=== PATIENT | female | born 1940 | race Caucasian/White ===

== ENCOUNTER 2019-02-14 15:47 | Inpatient (IN) ==
--- NOTE | 2019-02-14 17:36 | Internal Med History&Physical ---
Date of Encounter: 02/14/19 Time of Encounter: 17:30 Internal Medicine - H&P: HPI Chief complaint: SOB Admitted From: Home Plans for Post Hospital Care: Home History of present illness: Ms. Marcos is a 78 year old female who has history of atrial fibrillation status post pacemaker placement, CAD hypertension presented to [place] emergency room for not feeling well ,cough and shortness of breath for 1 week. Patient states that she was about to get a physical therapy a week ago, but she become so weak, now feeling well, very shortness of breath with exertion, she also have a dry cough for weak. She has some chills denies fever no night sweats. She denies chest pain, diarrhea nausea vomiting. She lost appetite has not been drinking and eating over last week, she feels to be dehydrated. In the emergency room she was find a low grade fever 100.9, EKG shows nonspecific ST depression, no ST elevation, V paced rhythm. WBC 10.2 INR 1.9 BNP 150 to UA is negative for infection, sodium 129 chest x-ray shows right upper pneumonia. Troponin was mildly elevated to 0.04. Cardiology was contacted and recommended follow-up troponin, if trop trending up then consult cardiology. Patient is going to be admitted for pneumonia, troponin elevation, dehydration I discussed the CODE STATUS with patient and she said her daughter Lisa is a POA she wants to be DNR CCA. Past Med Surg Social Fam HX - Past Medical History Medical history: atrial fibrillation, cancer, coronary artery disease, hypertension, other Additional medical history: DIVERTICULITIS, CARDIAC DYSRHYTHMIA,BASAL CELL CARCINOMA. ORIF RIGHT CLAVICAL Psychiatric history: no psych history - Past Surgical History Surgical History: cholecystectomy, hysterectomy Additional surgical history: NEGATIVE HEART CATH 2005, PACEMAKER 2007, BASAL CELL CARCINOMA REMOVED 12/2015 - Social History Smoking Status: Never smoker Smokeless Tobacco Status: No Alcohol use: none Drug use: none Internal Medicine - H&P: Meds Apixaban [Eliquis] 5 mg PO BID 02/21/16 [History] Calcium Carbonate [Calcium] 500 mg PO DAILY 02/21/16 [History] Cholecalciferol (D-3) [Vitamin D] 2,000 unit PO DAILY 02/21/16 [History] Diltiazem HCl [Cardizem Cd] 360 mg PO DAILY 02/21/16 [History] Allergy/AdvReac Type Severity Reaction Status Date / Time No Known Allergies Allergy Verified 02/14/19 10:44 All Systems PM: A 10-system review of systems was performed and is negative for pertinent findings except as documented above in the HPI. - Constitutional Vitals: Temp Pulse Resp BP Pulse Ox 98.8 F 72 18 102/68 90 02/14/19 17:13 02/14/19 17:13 02/14/19 17:13 02/14/19 17:13 02/14/19 17:13 General appearance: Present: A&O X 3, pleasant, obese Exam: CONSTITUTIONAL: Patient appears as an age appropriate female well developed, in no acute distress. EYES Clear sclerae, bilateral pupils are equal, reactive to light and accommodation. Extraocular movements are intact RESPIRATORY: No accessory muscle use, right-sided crackles to auscultation, no wheezing, no crackles/rales. CARDIOVASCULAR: Regular heart rate, normal S1 and S2, no murmurs GASTROINTESTINAL: bowel sounds present, soft, no tenderness. No hepatosplenomegaly. No bilateral CVA tenderness MUSCULOSKELETAL: Joints in normal range of motion, no clubbing, no edema, no cyanosis. Bilateral peripheral pulses 2+ LYMPHATIC no lymphadenopathy in neck, groin and axilla bilaterally, no thyromegaly. NEUROLOGIC: CN II to XII are grossly intact, no focal neurological deficit. Deep tendon reflexes 2+ bilaterally. Normal light touch sensation to upper and lower extremity PSYCHIATRIC: Oriented x3, with good insight, mood is euthymic. No hallucinations or delusions. SKIN: Skin warm and dry, no rashes, no open wound. Internal Med - H&P Results - EKG Data Prior EKG available for review: yes Interpretation IM: other - Impressions V-paced - Summary of Assessment and Plan Summary of Assessment and Plan: This is a 78 year 68 female who has history of atrial fibrillation stated post pacemaker placements, hypertension presenting emergency room for not feeling well dry cough, low-grade fever for 1 week. She was find the right upper lobar pneumonia and elevated troponin, hyponatremia #1 possible bacteria pneumonia unable to determine organism, patient denies recent hospitalization will continue ceftriaxone and azithromycin, check urine strep and leginella #2 elevated troponin, will follow-up troponin, if troponin trending up we will consult a oceanic sciences professor start heparin drip #3 hyponatremia, likely from dehydration patient has not been eating and drinking over last week due to illness. We will start gentle IV fluids #4. Chronic atrial fibrillation stated post pacemaker, currently on V paced rhythm continue Eliquis and the diltiazem #5 nausea and elevated LFT, will check RUQ US, zofran prn, add maalox prn #6. oBESITY WITH bmi 32 #7. code [id number] - Time Spent With Patient Total time spent is greater than 50% in coordination of care (as documented) at patient's floor/unit and/or counseling patient: Greater than 35 minutes
[2019-02-14] MEDS ORDERED: Acetaminophen 325 MG TABLET PO PRN (17:43)
[2019-02-14] MEDS ORDERED: Naloxone 0.4 MG/ML INJ IVP PRN (17:43)
[2019-02-14] MEDS ORDERED: Ondansetron 4 MG/2 ML VIAL IVP PRN (17:43)
[2019-02-14] MEDS: Mag Hydrox/Al Hydrox/Simeth 30 ML UDC PO SCH (21:24)
[2019-02-14] MEDS: Apixaban 5 MG TABLET PO SCH (21:24)
[2019-02-14] MEDS: Ringers Solution, Lactated 1,000 ML IVC SCH (21:25)
[2019-02-14] MEDS: Levalbuterol Neb 1.25 MG/3 ML IH SCH (22:50)
[2019-02-15] MEDS: Mag Hydrox/Al Hydrox/Simeth 30 ML UDC PO SCH ×4 (00:02→17:44)
[2019-02-15 01:56] LABS: Hematocrit 36.7 % (35.3-44.9); Hemoglobin 12.1 g/dL (11.5-15.4); Mean Corpuscular Hemoglobin 32.9 pg (28.0-33.3); Mean Corpuscular Volume 99.7 fL (83.0-100.0); Mean Platelet Volume 10.4 fL (9.4-12.4); Platelet Count 228 K/mcL (140-400); Red Blood Count 3.68 M/mcL (3.82-4.97); Red Cell Distribution Width 14.3 % (11.5-14.5); White Blood Count 10.3 K/mcL (4.3-11.1)
[2019-02-15 02:01] LABS: BUN/Creatinine Ratio 23 (6-26); Blood Urea Nitrogen 20 mg/dL (8-23); Calcium 8.1 mg/dL (8.6-10.3); Carbon Dioxide 22 mEq/L (23-29); Chloride 98 mEq/L (98-107); Chol/HDL Ratio 3.4 (0-4.9); Cholesterol 115 mg/dL (< 200); Glucose 110 mg/dL (70-105); HDL Cholesterol 34 mg/dL (40-59); LDL Cholesterol,Calculated 65 mg/dL (0-99); Osmolality,Calculated 273 (280-300); Potassium 3.5 mEq/L (3.5-5.1); Sodium 130 mEq/L (136-145); Triglycerides 79 mg/dL (< 150); eGFR For African Americans > 60 (> 60); eGFR For Non-African Americans > 60 (> 60)
[2019-02-15 02:43] LABS: Large Platelets Present (Not Present); Lymphocytes # 0.5 K/mcL (0.6-4.6); Monocytes # 0.5 K/mcL (0.0-1.3); Neutrophils # 9.3 K/mcL (1.6-8.9); Platelet Estimate Normal (Normal)
[2019-02-15] MEDS: Levalbuterol Neb 1.25 MG/3 ML IH SCH ×2 (03:23→10:56)
[2019-02-15] MEDS ORDERED: Levalbuterol Neb 1.25 MG/3 ML IH ONE (06:50)
--- NOTE | 2019-02-15 07:07 | Event Note ---
Date of Encounter: 02/15/19 Time of Encounter: 06:42 Alerted by patient's nurse SHERI Baltazar that patient had been admitted for pneumonia and is not saturating well. Patient currently on 5 L and only satting 88% on continuous pulse ox. Patient denies history of O2 use at home. Went to see patient immediately who was resting in bed. Patient denies history of CHF or COPD but does have history of A. fib which is currently rate controlled. Stat ABG ordered plus additional Xopenex IH treatment. Respiratory called. Stat respiratory infection panel ordered. Nurse instructed to continue monitoring patient very closely and alert day team of any adverse changes.
[2019-02-15 07:09] LABS: ABG Base Excess -2 mEq/L (-2 to 3); ABG HCO3 22 mEq/L (21-27); ABG Oxygen Saturation 91 % (95-98); ABG PCO2 32 mmHg (35-45); ABG PH 7.44 pH Units (7.32-7.45); ABG PO2 58 mmHg (85-104); ABG TCO2 23 mEq/L (20-26)
[2019-02-15 08:32] LABS: Adenovirus Not Detected (Not Detect); Bordetella Pertussis Not Detected (Not Detect); Chlamydophila pneumoniae Not Detected (Not Detect); Coronavirus 229E Not Detected (Not Detect); Coronavirus HKU1 Not Detected (Not Detect); Coronavirus NL63 Not Detected (Not Detect); Coronavirus OC43 Not Detected (Not Detect); Human Metapneumovirus Not Detected (Not Detect); Human Rhinovirus/Enterovirus Not Detected (Not Detect); Influenza A Subtype 2009 H1 Not Detected (Not Detect); Influenza A Untypeable Not Detected (Not Detect); Influenza B Not Detected (Not Detect); Mycoplasma pneumoniae Not Detected (Not Detect); Parainfluenza Virus 1 Not Detected (Not Detect); Parainfluenza Virus 2 Not Detected (Not Detect); Parainfluenza Virus 3 Not Detected (Not Detect); Parainfluenza Virus 4 Not Detected (Not Detect); Respiratory Syncytial Virus Not Detected (Not Detect)
[2019-02-15] MEDS: cefTRIAXone 1,000 MG in Water for inj. (sterile) 20 ML 10 ML IVP SCH (10:11)
[2019-02-15] MEDS: Diltiazem CD (24hr) 180 MG CAPSULE PO SCH (10:12)
[2019-02-15] MEDS: Azithromycin 500 MG in D5% in Water 250 ML IVPB SCH (10:12)
[2019-02-15] MEDS: Apixaban 5 MG TABLET PO SCH ×2 (10:12→19:43)
[2019-02-15] MEDS: Cholecalciferol (D-3) 1,000 UNIT TABLET PO SCH (10:12)
[2019-02-15] MEDS: Ringers Solution, Lactated 1,000 ML IVC SCH (10:25)
--- NOTE | 2019-02-15 14:58 | Internal Med Progress Note ---
Hospitalist Progress Note - Encounter Date of Encounter: 02/15/19 Time of Encounter: 14:49 - Subjective Interval History: Ms. Marcos is a 78 year old female who has history of atrial fibrillation status post pacemaker placement, CAD hypertension presented to [place] emergency room for not feeling well ,cough and shortness of breath for 1 week. Patient states that she was about to get a physical therapy a week ago, but she become so weak, now feeling well, very shortness of breath with exertion, she also have a dry cough for weak. She has some chills denies fever no night sweats. In the emergency room she was find a low grade fever 100.9, EKG shows nonspecific ST depression, no ST elevation, V paced rhythm. Her chest x-ray showed right upper pneumonia. Troponin was mildly elevated to 0.04. She was in the hospital and placed on conveyor monitor. She was started on empirical antibiotic IV Rocephin and azithromycin. Patient still hypoxic and requiring 4 lit oxygen. Patient stated she is feeling better today however still having shortness of breath and dyspnea on exertion. She denied any chest pain. She still have cough with expectoration - Exam Vitals: Temp Pulse Resp BP Pulse Ox 98.1 F 64 18 95/57 91 02/15/19 12:21 02/15/19 12:21 02/15/19 12:21 02/15/19 12:21 02/15/19 12:21 Exam: Gen: Alert, awake, Oriented to time,place and person Chest: Diminished breath sounds B/L, Moderate wheezing, No crackles, No rales Heart: S1S2+ RRR No murmurs Abd: Soft, NT, BS +, No organomegaly Ext: No edema, pulses are palpable, No calf tenderness Neuro : No acute focal neuro deficits noticed Skin: No rash. - Assessment and Plan (1) Acute respiratory failure with hypoxia Current Visit: Yes Status: Acute Assessment and Plan: Due to PNA Currently on 4 lit O2 She does not use O2 started on schedule frequent bronchodilator therapy also started her on low-dose steroids Patient does need to stay in the hospital more than 2 midnights due to her complex medical problems. So we will change her to full admission today. I did review my colleague Dr. Mcnulty's H & P including HPI, PMH, PSH, FH, SH, and ROS no changes noticed (2) Community acquired pneumonia Current Visit: No Status: Acute Assessment and Plan: Mostly bacterial pneumonia respiratory viral panel came back is negative strep pneumonia and Legionella negative continue empirical antibiotic IV Rocephin and azithromycin (3) Reactive airway disease with acute exacerbation Current Visit: Yes Status: Acute Assessment and Plan: started on low dose steroids cont frequent bronchodilator therapy (4) HTN (hypertension) Current Visit: Yes Status: Acute Assessment and Plan: Well controlled with the current home medications (5) Hyponatremia Current Visit: Yes Status: Acute Assessment and Plan: Mostly due to dehydration improving (6) Paroxysmal A-fib Current Visit: Yes Status: Acute Assessment and Plan: Rate controlled with Cardizem on eliquis for anticoagulation (7) Elevated troponin Current Visit: No Status: Acute - Time Spent with Patient Total time spent is greater than 50% in coordination of care (as documented) at patient's floor/unit and/or counseling patient: Internal Medicine: Result - Labs CBC & Chem 7: 02/15/19 00:09 02/15/19 00:09 Labs: Short CBC 02/15/19 Range/Units 00:09 WBC 10.3 (4.3-11.1) K/mcL Hgb 12.1 (11.5-15.4) g/dL Hct 36.7 (35.3-44.9) % Plt Count 228 (140-400) K/mcL Neutrophils # 9.3 H (1.6-8.9) K/mcL BMP 02/15/19 00:09 Sodium 130 L Potassium 3.5 Chloride 98 Carbon Dioxide 22 L BUN 20 Creatinine 0.86 Glucose 110 H Calcium 8.1 L Cardiac Enzymes 02/14/19 02/15/19 02/15/19 Range/Units 18:01 00:09 05:41 Troponin I 0.04 H* 0.04 H* 0.04 H* (< 0.04) ng/mL - ABG Interpretation ABG results: ABG ABG pH 7.44 pH Units (7.32-7.45) 02/15/19 07:04 ABG pCO2 32 mmHg (35-45) L 02/15/19 07:04 ABG pO2 58 mmHg (85-104) L 02/15/19 07:04 ABG O2 Saturation 91 % (95-98) L 02/15/19 07:04 - Impressions Impressions Abdomen Ultrasound 02/15/19 09:00 IMPRESSION: Cholecystectomy has been performed. There is suggestion of bile duct dilation above what would be expected for the patient's cholecystectomy state. However this is not well evaluated by ultrasound and recommend further evaluation with MRCP. If MRI cannot be performed then a CT of the abdomen preferably with IV contrast would be recommended. There is a flattened cystic structure in the region of the gallbladder fossa suspected to be fluid-filled duodenum although a fluid collection could have this appearance. This could be further assessed with MRCP or CT. Mild hepatic steatosis. D/ / Elbert Figueroa MD / Elbert Figueroa MD Interpreting Provider: Elbert Figueroa MD Consult Discharge Plan - Plan Referrals: Devonte Espana, DO [Primary Care Provider] - (2) Community acquired pneumonia Qualifiers: Laterality: right Lung location: upper lobe of lung Qualified Code(s): J18.1 - Lobar pneumonia, unspecified organism (4) HTN (hypertension) Qualifiers: Hypertension type: essential hypertension Qualified Code(s): I10 - Essential (primary) hypertension
[2019-02-15] MEDS: Ipratropium/Albuterol Neb 3 ML IH SCH ×2 (15:43→20:56)
[2019-02-15] MEDS: MethylPREDNISolone 40 MG/ML VIAL IVP SCH (17:44)
[2019-02-16] MEDS: Mag Hydrox/Al Hydrox/Simeth 30 ML UDC PO SCH ×4 (00:03→17:32)
[2019-02-16] MEDS: Ipratropium/Albuterol Neb 3 ML IH SCH ×7 (00:31→23:17)
[2019-02-16] MEDS: MethylPREDNISolone 40 MG/ML VIAL IVP SCH ×2 (05:39→17:32)
[2019-02-16 06:54] LABS: Basophils % 0.2 %; Hematocrit 37.7 % (35.3-44.9); Hemoglobin 12.4 g/dL (11.5-15.4); Immature Granulocytes % 2.9 % (0-4); Lymphocytes # 0.3 K/mcL (0.6-4.6); Lymphocytes % 4.9 %; Mean Corpuscular HGB Conc 32.9 g/dL (31.6-35.5); Mean Corpuscular Hemoglobin 32.6 pg (28.0-33.3); Mean Corpuscular Volume 99.2 fL (83.0-100.0); Mean Platelet Volume 9.9 fL (9.4-12.4); Monocytes # 0.1 K/mcL (0.0-1.3); Monocytes % 1.7 %; Neutrophils # 5.9 K/mcL (1.6-8.9); Platelet Count 279 K/mcL (140-400); Segmented Neutrophils % 90.3 %; White Blood Count 6.5 K/mcL (4.3-11.1)
[2019-02-16 07:17] LABS: BUN/Creatinine Ratio 29 (6-26); Blood Urea Nitrogen 19 mg/dL (8-23); Calcium 8.8 mg/dL (8.6-10.3); Carbon Dioxide 23 mEq/L (23-29); Chloride 100 mEq/L (98-107); Glucose 216 mg/dL (70-105); Osmolality,Calculated 289 (280-300); Potassium 3.2 mEq/L (3.5-5.1); Sodium 135 mEq/L (136-145); eGFR For African Americans > 60 (> 60); eGFR For Non-African Americans > 60 (> 60)
[2019-02-16] MEDS ORDERED: Isovue-370 500 ML BOTTLE IVP ONE (09:36)
[2019-02-16] MEDS: Apixaban 5 MG TABLET PO SCH ×2 (10:12→22:08)
[2019-02-16] MEDS: cefTRIAXone 1,000 MG in Water for inj. (sterile) 20 ML 10 ML IVP SCH (10:12)
[2019-02-16] MEDS: Diltiazem CD (24hr) 180 MG CAPSULE PO SCH (10:12)
[2019-02-16] MEDS: Cholecalciferol (D-3) 1,000 UNIT TABLET PO SCH (10:12)
[2019-02-16] MEDS: Azithromycin 500 MG in D5% in Water 250 ML IVPB SCH (10:13)
--- NOTE | 2019-02-16 13:07 | Internal Med Progress Note ---
Hospitalist Progress Note - Encounter Date of Encounter: 02/16/19 Time of Encounter: 09:30 - Subjective Interval History: Ms. Marcos is a 78 year old female who has history of atrial fibrillation status post pacemaker placement, CAD hypertension presented to [place] emergency room for not feeling well ,cough and shortness of breath for 1 week. Patient states that she was about to get a physical therapy a week ago, but she become so weak, now feeling well, very shortness of breath with exertion, she also have a dry cough for weak. She has some chills denies fever no night sweats. In the emergency room she was find a low grade fever 100.9, EKG shows nonspecific ST depression, no ST elevation, V paced rhythm. Her chest x-ray showed right upper pneumonia. Troponin was mildly elevated to 0.04. She was admitted in the hospital and placed her on cardiac tech. She was started on empirical antibiotic IV Rocephin and azithromycin. Patient still hypoxic and requiring 5 lit oxygen today. However patient stated she is feeling better today. She still has moderate shortness of breath and dyspnea on exertion. She denied any chest pain. She still have cough with expectoration - Exam Vitals: Temp Pulse Resp BP Pulse Ox 97.7 F 61 16 140/71 93 02/16/19 12:31 02/16/19 12:31 02/16/19 12:31 02/16/19 12:31 02/16/19 12:31 Exam: Gen: Alert, awake, Oriented to time,place and person Chest: Diminished breath sounds B/L, Moderate wheezing, No crackles, No rales Heart: S1S2+ RRR No murmurs Abd: Soft, NT, BS +, No organomegaly Ext: No edema, pulses are palpable, No calf tenderness Neuro : No acute focal neuro deficits noticed Skin: No rash. - Assessment and Plan (1) Acute respiratory failure with hypoxia Current Visit: Yes Status: Acute Assessment and Plan: Due to PNA Currently on 5 lit O2 She does not use O2 Cont schedule frequent bronchodilator therapy Cont low-dose steroids will try to wean her off the oxygen as she tolerates Since pt still severe hypoxic, will get CT of Chest for better eval. (2) Community acquired pneumonia Current Visit: No Status: Acute Assessment and Plan: Mostly bacterial pneumonia respiratory viral panel came back is negative strep pneumonia and Legionella negative continue empirical antibiotic IV Rocephin and azithromycin (3) Elevated troponin Current Visit: No Status: Acute Assessment and Plan: Stable, flat and adynamic troponin Mostly due to demand ischemia with Hypoxic resp failure (4) Reactive airway disease with acute exacerbation Current Visit: Yes Status: Acute Assessment and Plan: cont low dose steroids Solumedrol 40 mg BID cont frequent bronchodilator therapy (5) HTN (hypertension) Current Visit: Yes Status: Acute Assessment and Plan: Well controlled with the current home medications (6) Hyponatremia Current Visit: Yes Status: Acute Assessment and Plan: Mostly due to dehydration improved.. Today @ 135 (7) Paroxysmal A-fib Current Visit: Yes Status: Acute Assessment and Plan: Rate controlled with Cardizem on eliquis for anticoagulation - Time Spent with Patient Total time spent is greater than 50% in coordination of care (as documented) at patient's floor/unit and/or counseling patient: Internal Medicine: Result - Labs CBC & Chem 7: 02/16/19 06:23 02/16/19 06:23 Labs: Short CBC 02/16/19 Range/Units 06:23 WBC 6.5 (4.3-11.1) K/mcL Hgb 12.4 (11.5-15.4) g/dL Hct 37.7 (35.3-44.9) % Plt Count 279 (140-400) K/mcL Neutrophils # 5.9 (1.6-8.9) K/mcL BMP 02/16/19 06:23 Sodium 135 L Potassium 3.2 L Chloride 100 Carbon Dioxide 23 BUN 19 Creatinine 0.66 Glucose 216 H Calcium 8.8 - ABG Interpretation ABG results: ABG ABG pH 7.44 pH Units (7.32-7.45) 02/15/19 07:04 ABG pCO2 32 mmHg (35-45) L 02/15/19 07:04 ABG pO2 58 mmHg (85-104) L 02/15/19 07:04 ABG O2 Saturation 91 % (95-98) L 02/15/19 07:04 Consult Discharge Plan - Plan Referrals: Devonte Espana, DO [Primary Care Provider] - (2) Community acquired pneumonia Qualifiers: Laterality: right Lung location: upper lobe of lung Qualified Code(s): J18.1 - Lobar pneumonia, unspecified organism (5) HTN (hypertension) Qualifiers: Hypertension type: essential hypertension Qualified Code(s): I10 - Essential (primary) hypertension
[2019-02-17] MEDS: Ipratropium/Albuterol Neb 3 ML IH SCH ×5 (03:45→19:50)
[2019-02-17] MEDS: Mag Hydrox/Al Hydrox/Simeth 30 ML UDC PO SCH ×4 (05:22→16:24)
[2019-02-17] MEDS: MethylPREDNISolone 40 MG/ML VIAL IVP SCH ×2 (05:22→16:24)
[2019-02-17] MEDS: Cholecalciferol (D-3) 1,000 UNIT TABLET PO SCH (08:13)
[2019-02-17] MEDS: Apixaban 5 MG TABLET PO SCH ×2 (08:13→21:27)
[2019-02-17] MEDS: Diltiazem CD (24hr) 180 MG CAPSULE PO SCH (08:15)
[2019-02-17] MEDS: Azithromycin 500 MG in D5% in Water 250 ML IVPB SCH (08:15)
[2019-02-17] MEDS: cefTRIAXone 1,000 MG in Water for inj. (sterile) 20 ML 10 ML IVP SCH (08:16)
--- NOTE | 2019-02-17 13:00 | Internal Med Progress Note ---
Hospitalist Progress Note - Encounter Date of Encounter: 02/17/19 Time of Encounter: 10:30 - Subjective Interval History: Ms. Marcos is a 78 year old female who has history of atrial fibrillation status post pacemaker placement, CAD hypertension presented to [place] emergency room for not feeling well ,cough and shortness of breath for 1 week. Patient states that she was about to get a physical therapy a week ago, but she become so weak, now feeling well, very shortness of breath with exertion, she also have a dry cough for weak. She has some chills denies fever no night sweats. In the emergency room she was find a low grade fever 100.9, EKG shows nonspecific ST depression, no ST elevation, V paced rhythm. Her chest x-ray showed right upper pneumonia. Troponin was mildly elevated to 0.04. She was admitted in the hospital and placed her on livestock farmers. She was started on empirical antibiotic IV Rocephin and azithromycin. Patient still hypoxic and requiring 4 lit oxygen today. However patient stated she is feeling better today. She still has moderate shortness of breath and dyspnea on exertion. No events over night. - Exam Vitals: Temp Pulse Resp BP Pulse Ox 97.6 F 67 18 137/71 89 02/17/19 11:10 02/17/19 11:10 02/17/19 11:19 02/17/19 11:10 02/17/19 11:19 Exam: Gen: Alert, awake, Oriented to time,place and person Chest: Diminished breath sounds B/L, Moderate wheezing, No crackles, No rales Heart: S1S2+ RRR No murmurs Abd: Soft, NT, BS +, No organomegaly Ext: No edema, pulses are palpable, No calf tenderness Neuro : No acute focal neuro deficits noticed Skin: No rash. - Assessment and Plan (1) Acute respiratory failure with hypoxia Current Visit: Yes Status: Acute Assessment and Plan: Due to PNA Currently on 4 lit O2 She does not use O2 Cont schedule frequent bronchodilator therapy Cont low-dose steroids will try to wean her off the oxygen as she tolerates Reviewed CT of Chest showed Extensive Rt UL PNA (2) Community acquired pneumonia Current Visit: No Status: Acute Assessment and Plan: Mostly bacterial pneumonia respiratory viral panel came back is negative strep pneumonia and Legionella negative Reviewed CT of Chest showed Extensive Rt UL PNA So concerning for Aspiration PNA Pt is still very hypoxic, so will switch her abx Rocephin to Unasyn continue azithromycin for atypical coverage (3) Elevated troponin Current Visit: No Status: Acute Assessment and Plan: Stable, flat and adynamic troponin Mostly due to demand ischemia with Hypoxic resp failure (4) Reactive airway disease with acute exacerbation Current Visit: Yes Status: Acute Assessment and Plan: cont low dose steroids Solumedrol 40 mg BID cont frequent bronchodilator therapy (5) HTN (hypertension) Current Visit: Yes Status: Acute Assessment and Plan: Well controlled with the current home medications (6) Hyponatremia Current Visit: Yes Status: Acute Assessment and Plan: Mostly due to dehydration improved.. Today @ 135 (7) Paroxysmal A-fib Current Visit: Yes Status: Acute Assessment and Plan: Rate controlled with Cardizem on eliquis for anticoagulation - Time Spent with Patient Total time spent is greater than 50% in coordination of care (as documented) at patient's floor/unit and/or counseling patient: Internal Medicine: Result - Labs CBC & Chem 7: 02/16/19 06:23 02/16/19 06:23 - ABG Interpretation ABG results: ABG ABG pH 7.44 pH Units (7.32-7.45) 02/15/19 07:04 ABG pCO2 32 mmHg (35-45) L 02/15/19 07:04 ABG pO2 58 mmHg (85-104) L 02/15/19 07:04 ABG O2 Saturation 91 % (95-98) L 02/15/19 07:04 - Impressions Impressions Chest CT 02/16/19 09:36 IMPRESSION: Extensive right upper lobe pneumonia with accompanying small right pleural effusion. Follow-up after therapy to confirm resolution recommended. D/ / Brenton Maier MD / Brenton Maier MD Interpreting Provider: Brenton Maier MD Consult Discharge Plan - Plan Referrals: Devonte Espana, DO [Primary Care Provider] - (2) Community acquired pneumonia Qualifiers: Laterality: right Lung location: upper lobe of lung Qualified Code(s): J18.1 - Lobar pneumonia, unspecified organism (5) HTN (hypertension) Qualifiers: Hypertension type: essential hypertension Qualified Code(s): I10 - Essential (primary) hypertension
[2019-02-17] MEDS: Ampicillin/Sulbactam 1,500 MG in 0.9 % Sodium Chloride Mini Bag 100 ML IVPB SCH ×2 (16:23→16:35)
[2019-02-18] MEDS: Ampicillin/Sulbactam 1,500 MG in 0.9 % Sodium Chloride Mini Bag 100 ML IVPB SCH ×5 (00:10→22:39)
[2019-02-18] MEDS: Mag Hydrox/Al Hydrox/Simeth 30 ML UDC PO SCH ×5 (00:11→22:57)
[2019-02-18] MEDS: Ipratropium/Albuterol Neb 3 ML IH SCH ×7 (00:42→23:29)
[2019-02-18] MEDS: MethylPREDNISolone 40 MG/ML VIAL IVP SCH (06:05)
[2019-02-18 06:09] LABS: BUN/Creatinine Ratio 32 (6-26); Blood Urea Nitrogen 33 mg/dL (8-23); Calcium 9.7 mg/dL (8.6-10.3); Carbon Dioxide 23 mEq/L (23-29); Chloride 101 mEq/L (98-107); Glucose 200 mg/dL (70-105); Osmolality,Calculated 297 (280-300); Potassium 4.4 mEq/L (3.5-5.1); Sodium 137 mEq/L (136-145); eGFR For African Americans > 60 (> 60); eGFR For Non-African Americans 52 (> 60)
[2019-02-18] MEDS: Apixaban 5 MG TABLET PO SCH ×2 (10:41→21:10)
[2019-02-18] MEDS: Cholecalciferol (D-3) 1,000 UNIT TABLET PO SCH (10:41)
[2019-02-18] MEDS: Diltiazem CD (24hr) 180 MG CAPSULE PO SCH (10:41)
[2019-02-18] MEDS: Azithromycin 500 MG in D5% in Water 250 ML IVPB SCH (10:42)
--- NOTE | 2019-02-18 14:44 | Internal Med Progress Note ---
Hospitalist Progress Note - Encounter Date of Encounter: 02/18/19 Time of Encounter: 14:41 - Subjective Interval History: Ms. Marcos is a 78 year old female who has history of atrial fibrillation status post pacemaker placement, CAD hypertension presented to [place] emergency room for not feeling well ,cough and shortness of breath for 1 week. Patient states that she was about to get a physical therapy a week ago, but she become so weak, now feeling well, very shortness of breath with exertion, she also have a dry cough for weak. She has some chills denies fever no night sweats. In the emergency room she was find a low grade fever 100.9, EKG shows nonspecific ST depression, no ST elevation, V paced rhythm. Her chest x-ray showed right upper pneumonia. Troponin was mildly elevated to 0.04. She was admitted in the hospital and placed her on shipsmith. She was started on empirical antibiotic IV Rocephin and azithromycin. later switched to Unasyn and Azithromycin. Initially she did require 5 lit O2, now she is down to 2 lit O2. Patient stated she is feeling better today. However patient looks little confused. Patient had an episode of severe agitation last night. - Exam Vitals: Temp Pulse Resp BP Pulse Ox 97.7 F 61 18 162/78 94 02/18/19 10:35 02/18/19 10:35 02/18/19 11:35 02/18/19 10:35 02/18/19 11:35 Exam: Gen: Alert, awake, Oriented to time,place and person.. Looks confused / altered Chest: Diminished breath sounds B/L, Moderate wheezing, No crackles, No rales Heart: S1S2+ RRR No murmurs Abd: Soft, NT, BS +, No organomegaly Ext: No edema, pulses are palpable, No calf tenderness Neuro : No acute focal neuro deficits noticed Skin: No rash. - Assessment and Plan (1) Acute delirium Current Visit: Yes Status: Acute Assessment and Plan: Mostly due to toxic encephalopathy due to PNA and some down syndrome due to dementia Started on Seroquel 25mg on Haldol PRN Avoid Benzo's (2) Acute respiratory failure with hypoxia Current Visit: Yes Status: Acute Assessment and Plan: Due to PNA Currently on 2 lit O2 She does not use O2 Cont schedule frequent bronchodilator therapy Switched to PO steroids will try to wean her off the oxygen as she tolerates Reviewed CT of Chest showed Extensive Rt UL PNA (3) Community acquired pneumonia Current Visit: No Status: Acute Assessment and Plan: Mostly bacterial pneumonia respiratory viral panel came back is negative strep pneumonia and Legionella negative Reviewed CT of Chest showed Extensive Rt UL PNA So concerning for Aspiration PNA Pt is still very hypoxic, so will switch her abx Rocephin to Unasyn Finished her azithromycin course for atypical coverage (4) Elevated troponin Current Visit: No Status: Acute Assessment and Plan: Stable, flat and adynamic troponin Mostly due to demand ischemia with Hypoxic resp failure (5) Dementia Current Visit: Yes Status: Acute (6) Reactive airway disease with acute exacerbation Current Visit: Yes Status: Acute Assessment and Plan: Improving switched to PO steroids cont frequent bronchodilator therapy (7) HTN (hypertension) Current Visit: Yes Status: Acute Assessment and Plan: Well controlled with the current home medications (8) Hyponatremia Current Visit: Yes Status: Acute Assessment and Plan: Mostly due to dehydration improved.. Today @ 135 (9) Paroxysmal A-fib Current Visit: Yes Status: Acute Assessment and Plan: Rate controlled with Cardizem on eliquis for anticoagulation - Time Spent with Patient Total time spent is greater than 50% in coordination of care (as documented) at patient's floor/unit and/or counseling patient: Internal Medicine: Result - Labs CBC & Chem 7: 02/16/19 06:23 02/18/19 04:42 Labs: BMP 02/18/19 04:42 Sodium 137 Potassium 4.4 Chloride 101 Carbon Dioxide 23 BUN 33 H Creatinine 1.02 Glucose 200 H Calcium 9.7 - ABG Interpretation ABG results: ABG ABG pH 7.44 pH Units (7.32-7.45) 02/15/19 07:04 ABG pCO2 32 mmHg (35-45) L 02/15/19 07:04 ABG pO2 58 mmHg (85-104) L 02/15/19 07:04 ABG O2 Saturation 91 % (95-98) L 02/15/19 07:04 Consult Discharge Plan - Plan Referrals: Devonte Espana DO [Primary Care Provider] - 02/25/19 3:00 pm (3) Community acquired pneumonia Qualifiers: Laterality: right Lung location: upper lobe of lung Qualified Code(s): J18.1 - Lobar pneumonia, unspecified organism (7) HTN (hypertension) Qualifiers: Hypertension type: essential hypertension Qualified Code(s): I10 - Essential (primary) hypertension
[2019-02-18 22:42] VITALS: BP 161/74
[2019-02-19] MEDS: Ipratropium/Albuterol Neb 3 ML IH SCH ×4 (04:38→15:54)
[2019-02-19] MEDS: Ampicillin/Sulbactam 1,500 MG in 0.9 % Sodium Chloride Mini Bag 100 ML IVPB SCH (06:29)
[2019-02-19] MEDS: Mag Hydrox/Al Hydrox/Simeth 30 ML UDC PO SCH ×2 (06:34→12:34)
[2019-02-19] MEDS: predniSONE 20 MG TABLET PO SCH ×2 (08:02→10:24)
[2019-02-19] MEDS: Apixaban 5 MG TABLET PO SCH (08:02)
[2019-02-19] MEDS: Cholecalciferol (D-3) 1,000 UNIT TABLET PO SCH (08:07)
[2019-02-19] MEDS: Diltiazem CD (24hr) 180 MG CAPSULE PO SCH (10:24)
--- NOTE | 2019-02-19 14:56 | Discharge Summary ---
- NOTES TO OUTPATIENT PROVIDER Notes to Outpatient Provider: Patient admitted for management of pneumonia with hypoxic respiratory failure. Her resp failure has improved at rest and Pneumonia is being treated. She developed delirium in-patient and per family, this usually resolves on discharge home. She lived in an independent living situation but will be going to [facility] at the [facility] where she will be transitioned to assisted living. She is discharged home on oral antibiotics. Follow up with PCP Orders not resulted at time of discharge: Pending orders 02/19/19 04:00 Basic Metabolic Panel AM 0400 Complete Blood Count w/o Diff [HEME] AM 0400 Magnesium AM 0400 Date of Encounter: 02/19/19 Time of Encounter: 14:53 - Discharge Diagnosis (1) Community acquired pneumonia Priority: Primary Status: Acute Qualifiers: Laterality: right Lung location: upper lobe of lung Qualified Code(s): J18.1 - Lobar pneumonia, unspecified organism (2) Elevated troponin Priority: Primary Status: Resolved (3) HTN (hypertension) Priority: Secondary Status: Chronic Qualifiers: Hypertension type: essential hypertension Qualified Code(s): I10 - Essential (primary) hypertension (4) Hyponatremia Priority: Secondary Status: Chronic (5) Paroxysmal A-fib Priority: Secondary Status: Chronic (6) Acute respiratory failure with hypoxia Priority: Primary Status: Resolved (7) Reactive airway disease with acute exacerbation Priority: Secondary Status: Chronic Qualifiers: Asthma severity: mild Asthma persistence: intermittent Qualified Code(s): J45.21 - Mild intermittent asthma with (acute) exacerbation (8) Acute delirium Priority: Primary Status: Acute (9) Dementia Priority: Secondary Status: Chronic Qualifiers: Dementia type: unspecified type Dementia behavioral disturbance: without behavioral disturbance Qualified Code(s): F03.90 - Unspecified dementia without behavioral disturbance Hospital course: Ms. Marcos is a 78 year old female with PMH of dementia, Atrial fibrillation, Reactive airway disease, admitted for management of acute hypoxic respiratory failure secondary to pneumonia Hospital course complicated by delirium Patient has been on Ceftriaxone, switched to Unasyn and she has been on O2 supplementation by nasal cannula She was also on breathing treatment and steroids for her reactive airway disease and is no longer wheezing She was seen and examined at the bedside with family Her daughter and TAJ report she alwys gets delirium while inpatient They are reassured she will be going to fast track where she will be transitioned to assisted living. They are aware she is unable to stay alone Her physical exam is unremarkable except for disorientation to time I have discontinued steroids as this may be contributing to her mental status especially since she has improved resp saha Discharged home with oral antibiotics, continue home meds, as other chronic medical conditions are stable Discharge discussed with: patient, family, nurse - Time Spent with Patient Total time spent providing and/or coordinating discharge services: Time spent: Less than 30 minutes - Discharge Medications Prescriptions: New Diltiazem CD (24hr) [Cardizem CD] 360 mg PO DAILY cap.er.24h predniSONE [PredniSONE] 40 mg PO DAILY tablet Continued Cholecalciferol (D-3) [Vitamin D] 1,000 unit PO DAILY Apixaban [Eliquis] 5 mg PO BID Calcium Carbonate [Calcium] 500 mg PO DAILY Fluticasone Propionate Nasal [Flonase] 1 spray NS DAILY Acetaminophen with Codeine [Acetaminophen-Cod #3 Tablet] 1 tab PO Q6H PRN PRN Reason: Pain Discontinued dilTIAZem HCl [Diltiazem HCl] 120 mg PO TID Home Medications: Apixaban [Eliquis] 5 mg PO BID 02/21/16 [History] Calcium Carbonate [Calcium] 500 mg PO DAILY 02/21/16 [History] Cholecalciferol (D-3) [Vitamin D] 1,000 unit PO DAILY 02/21/16 [History] Acetaminophen with Codeine [Acetaminophen-Cod #3 Tablet] 1 tab PO Q6H PRN 02/15/19 [History] Fluticasone Propionate Nasal [Flonase] 1 spray NS DAILY 02/15/19 [History] Amoxicillin/Clavulanate [Augmentin] 875 mg PO BIDWM 4 Days #8 tablet 02/19/19 [Rx] Diltiazem CD (24hr) [Cardizem CD] 360 mg PO DAILY cap.er.24h 02/19/19 [Rx] Allergies/Adverse Reactions: Allergy/AdvReac Type Severity Reaction Status Date / Time No Known Allergies Allergy Verified 02/14/19 10:44 Date of admission: 02/15/19 10:05 Primary care physician: Devonte Espana DO Consults: 02/14/19 17:44 Consult to Occupational Therapy [CONS] Routine Comment: Evaluate, develop and implement POC Reason for Consult: discharge Does patient have active BEDREST order?: No Is patient medically & hemodynamically stable?: Yes Patient assessed for mobility or mobilized this visit?: Yes Consult to Physical Therapy [CONS] Routine Comment: Evaluate, develop and implement POC Reason for Consult: discharge Does patient have active BEDREST order?: No Is patient medically & hemodynamically stable?: Yes Patient assessed for mobility or mobilized this visit?: Yes 02/15/19 09:26 Consult to Nurse Navigator [CONS] Routine Comment: PNEUMONIA 02/16/19 09:10 Consult to Toy Mechanic [CONS] Routine Reason for SW Consult: PT/OT RECOMMEND SNF. REFERRAL MADE TO [facility] Discharging clinician: Maximilian Covarrubias Anticipated date of discharge: 02/19/19 - Constitutional Vitals: Temp Pulse Resp BP Pulse Ox 97.5 F L 67 16 161/74 93 02/18/19 22:41 02/18/19 22:41 02/19/19 11:50 02/18/19 22:41 02/19/19 11:50 General appearance: Present: A&O X 2, pleasant, obese Exam: see below - Head Head exam: Present: atraumatic, normocephalic - Eye Eye exam: Present: PERRL, conjuntiva pink, sclera anicteric Pupils: Present: PERRL - Neck Neck exam general surgery: Present: supple, trachea midline. Absent: lymphadenopathy - Respiratory Respiratory exam: Present: CTAB. Absent: accessory muscle use, rales, rhonchi, wheezes - Cardiovascular Cardiovascular exam: Present: RRR, +S1, +S2. Absent: diastolic murmur, gallop, rubs, systolic murmur - GI/Abdominal GI/Abdominal exam: Present: normal bowel sounds, soft, no peritoneal signs. Absent: distended, tenderness - Extremities Exam Extremities exam: Present: warm, radial pulses palpable and symmetrical. Absent: calf tenderness, cyanotic, pedal edema - Neurological Exam Neurological exam: Present: CN II-XII intact, no focal deficits. Absent: oriented X3, pronater drift, facial droop, speech deficit - Skin Skin exam: Present: dry, intact - Patient Status Disposition: Transfer SNF Condition: Fair Functional capacity at discharge: independent ambulation Overall status at discharge: patient is progressing back to baseline - Discharge Instructions Follow Up With: Devonte Espana DO [Primary Care Provider] - 02/25/19 3:00 pm - Diet and Activity Activity: resume usual activities as tolerated, wear oxygen at all times Diet: low salt diet
--- NOTE | 2019-02-19 15:20 | Physician Discharge Referral ---
ExtendedCare Referral Info Transfer To: [facility] Provider in Charge: Nery Covarrubias Provider in Charge after Transfer: PCP Institutional Level of Care: Skilled - Diagnosis (1) Community acquired pneumonia Priority: Primary Status: Acute (2) Elevated troponin Priority: Primary Status: Resolved (3) HTN (hypertension) Priority: Secondary Status: Chronic (4) Hyponatremia Priority: Secondary Status: Chronic (5) Paroxysmal A-fib Priority: Secondary Status: Chronic (6) Acute respiratory failure with hypoxia Priority: Primary Status: Resolved (7) Reactive airway disease with acute exacerbation Priority: Primary Status: Resolved (8) Acute delirium Priority: Primary Status: Acute (9) Dementia Priority: Secondary Status: Chronic Prognosis: Fair Aware of Diagnosis: Family Aware of Prognosis: Family - Transfer Medications Prescriptions: Amoxicillin/Clavulanate [Augmentin] 875 mg PO BIDWM 4 Days #8 tablet Home Medications: Apixaban [Eliquis] 5 mg PO BID 02/21/16 [History] Calcium Carbonate [Calcium] 500 mg PO DAILY 02/21/16 [History] Cholecalciferol (D-3) [Vitamin D] 1,000 unit PO DAILY 02/21/16 [History] Acetaminophen with Codeine [Acetaminophen-Cod #3 Tablet] 1 tab PO Q6H PRN 02/15/19 [History] Fluticasone Propionate Nasal [Flonase] 1 spray NS DAILY 02/15/19 [History] Amoxicillin/Clavulanate [Augmentin] 875 mg PO BIDWM 4 Days #8 tablet 02/19/19 [Rx] Diltiazem CD (24hr) [Cardizem CD] 360 mg PO DAILY cap.er.24h 02/19/19 [Rx] Allergies/Adverse Reactions: Allergy/AdvReac Type Severity Reaction Status Date / Time No Known Allergies Allergy Verified 02/14/19 10:44 - Respiratory Orders Oxygen / L per min Smoking Cessation: Smoking cessation has been advised. For more information, call the [employer] Quit Line at 5-580-AQLM-NOW. - Advance Directives Code Status: DNR-Arrest/Don't Intubate - Mobility Orders Ambulate - Rehabiliation Orders Rehab Potential: Fair - Diet Orders Cardiac CERTIFICATION: I certify that the transfer of the above named patient to an Extended Care Facility is necessary for the continuing treatment of the diagnosis listed. The above information is true and accurate reflection of patient's current condition. Confidential - Redisclosure prohibited without a patient's written consent.
== END 2019-02-19 15:20 | DRG 193 ==
LOC: INTOOBSV 15:47 → SUATTDRO 15:47 → 3BNU 15:47 → SUATTDRO 02-15 10:05 → 3BNU 02-17 16:17
PROVIDERS: ADMIT Physical Medicine & Rehabilitation; ATTEND Internal Medicine